=== PATIENT | female | born 1955 ===

== ENCOUNTER 2016-11-13 09:18 | Outpatient (CLI) | payer MEDICARE ==
--- NOTE | 2016-11-13 11:59 | Mammography Report ---
BONE DENSITY STUDY: DEFINITIONS: BMD = Bone Mineral Density T-score = BMD related to mean peak bone mass of young adult (mean expressed in Standard Deviation) Z-score = Age matched BMD expressed in SD World Health Organization (WHO) Diagnostic Criteria Normal T-score > -1 SD Osteopenia T-score between -1 and -2.4 SD Osteoporosis T-score -2.5 SD or below FINDINGS: The weighted average BMD of lumbar spine L1-L4 is 0.960 with a T-score of -1.4. The weighted average BMD of hip is 0.86 zero with a T-score of -1.1. IMPRESSION: The patient's T-score is diagnostic for osteopenia and average relative risk for fracture. NOTE: BMD is not the only risk factor for fracture; also consider factors such as the patient's age, risk of falling, previous osteoporotic fracture, family history of osteoporotic fractures, current smoker, and low body weight. Quiroz's triangle is a region of interest in femur, predominantly of trabecular bone. It is not a true anatomic site, and [facility] does not recommend its use clinically.
--- NOTE | 2016-11-13 12:04 | Mammography Report ---
BILATERAL MAMMOGRAM with CAD: HISTORY:Cancer screening. FINDINGS: The breasts are almost entirely fat (<25% glandular). No mass, distortion, suspicious calcification, or skin change is seen. IMPRESSION: Negative mammogram. There is no mammographic evidence of malignancy. RECOMMENDATION: Follow-up per ACS guidelines. BI-RADS CATEGORY: 1 = Negative ACR BI-RADS MAMMOGRAPHIC CODES: 0 = Needs additional imaging evaluation; 1 = Negative; 2 = Benign; 3 = Probably benign; 4 = Suspicious; 5 = Malignant; 6 = Known biopsy-proven malignancy COMMENT: 1. Dense breast tissue, i.e., adenosis, fibrocystic changes, etc., may obscure an underlying neoplasm. 2. Approximately 10% of cancers are not detected with mammography. 3. A negative mammography report should not delay biopsy if a clinically suspicious mass is present. COMMENT: Patient follow-up letters are generated in [employer].
== END 2016-11-13 09:19 | disposition home or self-care (01) ==
LOC: SPVWC 09:18
PROVIDERS: ATTEND Internal Medicine
DX: Z12.31 Encounter for screening mammogram for malignant neoplasm of breast (principal); Z13.820 Encounter for screening for osteoporosis; M85.80 Other specified disorders of bone density and structure, unspecified site; F17.200 Nicotine dependence, unspecified, uncomplicated
CPT/HCPCS: 77080; G0202; 77067

== ENCOUNTER 2017-06-12 11:46 | Outpatient (CLI) | payer MEDICARE ==
--- NOTE | 2017-06-14 08:29 | XRay Report ---
Right hip 2 views: History: Hip pain. Findings: Marked narrowing of the hip joint predominantly inferiorly. Sclerotic articular surfaces with osteophyte suggestive of severe degenerative changes. 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 No fracture. Impression: Severe degenerative changes right hip.
== END 2017-06-12 11:47 | disposition home or self-care (01) ==
LOC: SPVIMAG 11:46
PROVIDERS: ATTEND Internal Medicine
DX: M16.11 Unilateral primary osteoarthritis, right hip (principal)

== ENCOUNTER 2018-04-26 06:38 | Day surgery (SDC) | payer OTHER, MEDICARE ==
[2018-04-26] MEDS ORDERED: WATER FOR IRRIG STERILE ONE (07:02)
[2018-04-26] MEDS ORDERED: WATER FOR IRRIG STERILE IR ONE (07:02)
[2018-04-26] MEDS ORDERED: NACL 0.9% 1000 ML 1,000 ML IV SCH (08:00)
[2018-04-26] MEDS ORDERED: DIPRIVAN 10 MG/ML IV ONE ×3 (08:08)
--- NOTE | 2018-04-26 09:53 | History and Physical Report ---
HISTORY OF PRESENT ILLNESS: This is a 62-year-old -[place] female with a history of bowel obstruction and surgery who is status post cholecystectomy, severe history of irritable bowel syndrome. She recently presented to the hospital because of abdominal pain and severe constipation. CT scan was essentially unremarkable, did not show any evidence of obstruction or colitis at this time. She also has an underlying history of irritable bowel syndrome, severe migraine, and prior history of hepatitis B. MEDIATIONS: She is on multiple medications including triamterene, estradiol, levothyroxine, fluoxetine, topiramate, omeprazole, Linzess on high dose for chronic conastipation prazosin and cyclobenzaprine. ALLERGIES: She has a history of allergy to PENICILLIN, GABAPENTIN, DEMEROL, MORPHINE, BENADRYL. SOCIAL HISTORY: Denies history of smoking or alcohol use. No cardiac issues and has had her flu shot. PHYSICAL EXAMINATION: VITAL SIGNS: She is afebrile. Blood pressure 124/85, pulse is 113. Height is 5 feet 6-1/2. HEENT: Shows no JVD. LUNGS: Clear to auscultation with some reduced breath sounds. CARDIOVASCULAR: Normal. ABDOMEN: There is no tenderness to palpation. She has a left lower quadrant pain and mid quadrant pain. EXTREMITIES: No pedal edema. NEUROLOGIC: She is alert and oriented. ASSESSMENT: Abdominal pain, history of irritable bowel syndrome, history of bowel obstruction, at present status post cholecystectomy, migraines, and a colon polyp screening. PLAN: To do a colonoscopy at [facility], to be done on 04/26/2018. JOB# [id number] JENNY/RAH ARREDONDO
--- NOTE | 2018-04-26 09:55 | Procedure Note ---
Date of procedure: 04/26/18 Pre-op diagnosis: Colon Polyp Screening/ Abdominal Pain Post-op diagnosis: other (Moderate, Left Colon Diverticular disease/ Minor, Internal Hemorrhoid) Procedure: Colonoscopy Anesthesia: MAC Surgeon: ZOHRA MOREJON Estimated blood loss: none Pathology: none Condition: stable Disposition: same day (Encourage fiber intake. Follow up in 1 to 2 weeks ([phone]).)
--- NOTE | 2018-04-26 10:09 | Operative Report ---
PROCEDURE: Colonoscopy. INDICATIONS: This is a 62-year-old -[place] female with an underlying history of irritable bowel syndrome who has been having some abdominal pain and changes in bowel habits. Colonoscopy was done as part of colon polyp screening. Procedure was done to make sure there was not any associated colon polyp or any significant lower GI pathology. DESCRIPTION OF PROCEDURE: Procedure was done after getting informed consent with MAC anesthesia. Initial rectal exam was unremarkable. Instrument was passed through the rectum onto the cecum, which was identified by ileocecal valve and the appendiceal orifice. Visualization was fair. The mucosa was washed with copious amounts of water. No significant pathology was noted in the cecum, ascending colon, and most of the transverse colon. There was moderate diverticular disease noted in the left colon and the rectum showed moderate internal hemorrhoids in the retroverted view. There were no colon polyps noted. No biopsies done. There was no bleeding associated with the procedure or complications associated with the procedure. ASSESSMENT: Colon polyp screening, abdominal pain, moderate left colon diverticular disease, minor internal hemorrhoids. Plan is to encourage the patient to take fiber supplements. Resume home medication. Because she has problems with constipation, thyroid function test will be checked to rule out for possible hyperthyroidism. The patient will be asked to follow up in the office in 1-2 weeks' time. Nurse, Savannah Goldberg, was in the room throughout the entirety of this procedure. JOB# [id number] JENNY/RAH
[2018-04-26 10:28] VITALS: BP 101/60
[2018-04-26] MEDS ORDERED: XYLOCAINE MPF 2% ONE (12:00)
[2018-04-26] MEDS ORDERED: NACL 0.9% 1000 ML 1,000 ML ONE (12:03)
== END 2018-04-26 10:42 | disposition home or self-care (01) ==
LOC: GIO 06:38
DX: K57.30 Diverticulosis of large intestine without perforation or abscess without bleeding (principal); K58.1 Irritable bowel syndrome with constipation; K64.8 Other hemorrhoids; K59.00 Constipation, unspecified; G43.909 Migraine, unspecified, not intractable, without status migrainosus; K21.9 Gastro-esophageal reflux disease without esophagitis; I10 Essential (primary) hypertension; J44.9 Chronic obstructive pulmonary disease, unspecified; B19.10 Unspecified viral hepatitis B without hepatic coma; Z79.899 Other long term (current) drug therapy; Z88.5 Allergy status to narcotic agent; Z88.0 Allergy status to penicillin; Z88.8 Allergy status to other drugs, medicaments and biological substances; Z90.49 Acquired absence of other specified parts of digestive tract; Z90.710 Acquired absence of both cervix and uterus; Z98.51 Tubal ligation status; Z96.653 Presence of artificial knee joint, bilateral; Z98.890 Other specified postprocedural states
CPT/HCPCS: 36415; 45378; 84436; 84443; 84481; J2704; J7030